=== PATIENT | male | born 1945 | race Caucasian/White ===

== ENCOUNTER 2018-11-24 22:12 | Emergency (ER) | payer MEDICARE, BC, SELFPAY ==
--- NOTE | 2018-11-24 22:19 | ED.GENADULT ---
HPI - General Adult General Chief complaint: Abdominal Pain Stated complaint: stomach cramps Time Seen by Provider: 11/24/18 22:14 Source: patient Mode of arrival: ambulatory Limitations: no limitations History of Present Illness HPI narrative: 72-year-old male here for evaluation of lower abdominal cramping and inability urinate since this morning. He states that also earlier today he had episodes of abdominal cramping causing diaphoresis and vomiting. He also feels like that he is constipated. The cramping and the diaphoresis and the vomiting have completely resolved. He states he has never had any problems with urinating in the past. No fevers. He thinks that he ate some bad food last evening which caused his symptoms today. Has not tried anything for symptoms prior to arrival Related Data Allergies Allergy/AdvReac Type Severity Reaction Status Date / Time No Known Drug Allergies Allergy Verified 11/24/18 22:25 Review of Systems Constitutional Constitutional: Reports chills, Denies fever(s) and Denies headache(s) ENT Ears, Nose, Mouth, and Throat: Denies headache(s) Cardiovascular Cardiovascular: Denies chest pain and Denies dyspnea Respiratory Respiratory: Denies dyspnea Gastrointestinal Gastrointestinal: Reports constipation, Reports cramping, Reports nausea and Reports vomiting Genitourinary Comments: No urine output since this more Musculoskeletal Musculoskeletal: Denies myalgias and Denies arthralgias Integumentary/Breasts Skin/Breast: Denies lesions and Denies rash Neurologic Neurologic: Denies headache(s) Hematologic/Lymphatic Hematologic/Lymphatic: Denies easy bleeding and Denies easy bruising [facility] Medical History Patient denies medical problems (Acute) Social History Smoking Status: Never smoker Social History Smoking Status: Never smoker Exam Initial Vital Signs Initial Vital Signs: Vital Signs Temperature 98.8 F 11/24/18 22:21 Pulse Rate 73 11/24/18 22:21 Respiratory Rate 16 11/24/18 22:21 Blood Pressure 167/90 H 11/24/18 22:21 Pulse Oximetry 97 11/24/18 22:21 Const General: cooperative, healthy appearing, comfortable, well developed and well groomed Orientation: alert and awake [facility] Head: normal to inspection and normocephalic Resp Effort & Inspection: normal respiratory effort Cardio Rate: regular rate GI Inspection: distended Palpation: soft and tender (Lower abdomen) Skin Lesions: no lesions Rashes: no rashes Neuro General: alert and awake Cognition: normal cognition Speech: speech normal Extrem General: normal to inspection and capillary refill normal Psych Appearance: grossly normal and well kempt Course Orders Ordered: ED Orders 11/24/18 22:30 Urinalysis and Microscopic Stat 11/24/18 22:40 Basic Metabolic Panel Stat Complete Blood Count AUTO DIFF Stat Vital Signs Vital signs: Vital Signs - 8 hr 11/24/18 22:21 11/24/18 23:17 11/24/18 23:59 Temperature 98.8 F Pulse Rate 73 66 72 Respiratory Rate 16 16 Blood Pressure 167/90 H 125/65 Blood Pressure [Right Arm] 131/60 Pulse Oximetry 97 97 98 Medical Decision Making Lab Data Lab results reviewed: Yes I reviewed the patient's lab results. Result diagrams: 11/24/18 22:40 11/24/18 22:40 Labs: Lab Results 11/24/18 11/24/18 11/24/18 Range/Units 22:30 22:40 22:40 WBC 11.5 H (4.5-11.0) X10^3/uL RBC 4.99 (4.5-5.9) X10^6/uL Hgb 15.9 (13.5-17.5) g/dL Hct 46.9 (41-53) % MCV 94.0 (80-100) fL MCH 31.8 (26-34) PG MCHC 33.8 (30-36) % RDW 14.3 (11.6-14.8) % Plt Count 172 (150-400) X10^3/uL Neut % (Auto) 82.8 H (50-75) % Lymph % (Auto) 7.6 L (25-40) % [place] % (Auto) 9.1 (3-14) % Eos % (Auto) 0.0 L (2-4) % Baso % (Auto) 0.5 (0-2) % Neut # (Auto) 9500 H (8853-0663) /uL Lymph # (Auto) 900 L (9870-9299) /uL [place] # (Auto) 1000 H (0-900) /uL Eos # (Auto) 0 (0-450) /uL Baso # (Auto) 100 (0-100) /uL Sodium 137 (137-145) mmol/L Potassium 4.2 (3.4-5.1) mmol/L Chloride 105 (98-107) mmol/L Carbon Dioxide 21 L (22-32) mmol/L BUN 35 H (9-20) mg/dL Creatinine 2.50 H (0.66-1.25) mg/dL Estimated GFR 25.4 L (>60) mL/min BUN/Creatinine Ratio 14.0 (6-22) Glucose 133 H (80-110) mg/dL Calcium 9.6 (8.4-10.2) mg/dL Urine Color Yellow Urine Appearance Slightly cloudy Urine pH 5.0 (4.5-8.0) Ur Specific [place] 1.010 (1.000-1.035) Urine Protein Negative (Negative) Urine Glucose (UA) Negative (Negative) g/dL Urine Ketones Negative (NEGATIVE) Urine Occult Blood 3+ H (Negative) Urine Nitrate Negative (Negative) Urine Bilirubin Negative (NEGATIVE) Urine Urobilinogen 0.2 (0.2) E.U./dL Ur Leukocyte Esterase Negative (NEGATIVE) Urine RBC 1-5/hpf (0-5/HPF) Urine WBC None seen (0-5/HPF) Urine Bacteria None seen (None) Ur Culture Indicated? Cult not indicated MDM Narrative Medical decision making narrative: Bladder scan showed 500 cc of urine in his bladder and the patient states that he could not urinate. Moreno catheter was placed with return of a total of 1300 cc of urine. He also has an increase in his creatinine which I suspect is from the outlet obstruction. No signs of a urinary tract infection. I had a discussion with the patient and his who is at bedside regarding his symptoms. Informed him that we could remove Moreno catheter however there is the potential that he would retain urine again. I advised him that we probably should leave the catheter in place however that would mean that he would go home with a catheter he needed to follow up with his primary doctor next week. After this discussion the patient opted to have the catheter removed. He was convinced that the urinary retention was caused by the nausea and vomiting the that he states was caused by the ?bad food ?that he ate the night before. I did inform him that this was unlikely the cause of his urinary retention. He understood the risks and benefits of leaving the catheter in and having it removed and he opted to have the catheter removed. Did inform him that he needed to contact his primary doctor on Monday for follow-up. I informed him that he did need to return to the emergency department if within the next 12-24 hours he did not urinate. He expressed understanding and agreement with plan. Discharge Plan Departure Patient Disposition: Home Clinical Impression: Acute urinary retention, Acute kidney injury Discharge Date/Time: 11/24/18 23:59 Instructions: DI for Urinary Retention in Men Activity Restrictions/Additional Instructions: After our discussion you opted to have the Moreno catheter removed. If over the next 12-24 hours you have a return of the inability to urinate please return to the emergency department. On Monday morning you do need to talk with your primary doctor about the urinary retention. It appears that the urinary retention has caused some injury to your kidneys however I expect that this will return to normal now that the bladder has been drained. Use to need to talk with your primary doctor regarding this as well.
[2018-11-24 22:21] VITALS: BP 167/90; PULSE 73; RESP 16; TEMP 37.1; O2SAT 97; BMI 25.4
[2018-11-24 22:43] LABS: Bacteria Urine None Seen; WBC Urine None Seen (0-5/HPF)
[2018-11-24 22:49] LABS: Bilirubin Urine UA NEGATIVE (NEGATIVE); Color Urine UA YELLOW; Glucose Urine UA NEGATIVE (Negative); Ketones Urine UA NEGATIVE (NEGATIVE); Leukocyte Esterase Urine UA NEGATIVE (NEGATIVE); Nitrite Urine UA NEGATIVE (Negative); Occult Blood Urine UA 3+ (Negative); Protein Urine UA NEGATIVE (Negative); Urobilinogen Urine UA 0.2 E.U./dL (0.2)
[2018-11-24 22:50] LABS: Appearance Urine UA Slightly Cloudy
[2018-11-24 22:52] LABS: Add Manual Diff / Slide Review NO; Basophils Absolute Auto 100 /uL (0-100); Basophils Percent Auto 0.5 % (0-2); Eosinophils Absolute Auto 0 /uL (0-450); Hematocrit 46.9 % (41-53); Hemoglobin 15.9 g/dL (13.5-17.5); Lymphocytes Absolute Auto 900 /uL (1100-4500); Lymphocytes Percent Auto 7.6 % (25-40); Mean Corpuscular HGB Conc 33.8 % (30-36); Mean Corpuscular Hemoglobin 31.8 PG (26-34); Monocytes Absolute Auto 1000 /uL (0-900); Monocytes Percent Auto 9.1 % (3-14); Neutrophils Absolute Auto 9500 /uL (1500-7000); Neutrophils Percent Auto 82.8 % (50-75); Platelet Count 172 X10^3/uL (150-400); Red Blood Cell Count 4.99 X10^6/uL (4.5-5.9); Red Cell Distribution Width 14.3 % (11.6-14.8); White Blood Cell Count 11.5 X10^3/uL (4.5-11.0)
[2018-11-24 22:59] LABS: Blood Urea Nitrogen 35 mg/dL (9-20); Calcium 9.6 mg/dL (8.4-10.2); Carbon Dioxide 21 mmol/L (22-32); Chloride 105 mmol/L (98-107); Estimated Glomerular Filt Rate 25.4 mL/min (>60); Glucose 133 mg/dL (80-110); HEMOLYSIS < 15 (0-50); Potassium 4.2 mmol/L (3.4-5.1); Sodium 137 mmol/L (137-145)
[2018-11-24 23:12] LABS: Culture Indicated Urine Cult Not Indicated; RBC Urine 1-5/HPF (0-5/HPF)
[2018-11-24 23:17] VITALS: BP 131/60; PULSE 66; O2SAT 97
[2018-11-24 23:59] VITALS: BP 125/65; PULSE 72; RESP 16; O2SAT 98
== END 2018-11-24 23:59 | disposition home or self-care (01) ==
PROVIDERS: Emergency Provider Emergency Medicine
DX: R33.9 Retention of urine, unspecified (principal); N17.9 Acute kidney failure, unspecified
CPT/HCPCS: 36591; 51701; 51798; 80048; 81001; 85025; 99283

== ENCOUNTER 2018-11-25 07:01 | Emergency (ER) | payer MEDICARE, BC, SELFPAY ==
[2018-11-25 07:08] VITALS: BP 163/67; PULSE 67; RESP 16; TEMP 36.6; O2SAT 95; BMI 25.4
--- NOTE | 2018-11-25 07:29 | ED.MALEGU ---
HPI - Male Genitourinary General Chief complaint: Urogenital-Male Stated complaint: Catheter issues Time Seen by Provider: 11/25/18 07:08 Source: patient, family () and old records reviewed Mode of arrival: ambulatory Limitations: no limitations History of Present Illness HPI Narrative: This is a 72-year-old male who returns with urinary tension. He was seen earlier this night had a catheter placed and had 1300 mL out immediately. Patient elected not to keep a Moreno catheter in place and returned this morning and again had retention. He has not had any fevers, no chest pain or shortness of breath. He did have abdominal pain earlier today and had some nausea and vomiting. He suspected that he had had food poisoning and thought that that was the cause of his urinary retention and that it had resolved that he would no longer have retention. Patient states he has not had any constipation. He had a normal soft bowel movement yesterday. He states that he has not had any issues but he has only had a small amount out today. He did notice a lot of pressure earlier. And he has occasionally had issues where he has had hesitancy with urination particularly when he has a strong laminated or tea. Patient does not take any other medications regularly. Related Data Previous Rx's Medication Instructions Recorded tamsulosin [Flomax] 0.4 mg PO DAILY #14 cap 11/25/18 Allergies Allergy/AdvReac Type Severity Reaction Status Date / Time No Known Drug Allergies Allergy Verified 11/24/18 22:25 Review of Systems Review of Systems ROS Unobtainable: All systems reviewed & are unremarkable except as noted in HPI and below Constitutional Constitutional: Denies chills and Denies fever(s) Gastrointestinal Gastrointestinal: Denies abdominal pain, Denies change in bowel habits, Denies diarrhea, Denies nausea and Denies vomiting Genitourinary Genitourinary: Reports as per HPI, Reports difficulty urinating, Denies dysuria, Denies urinary frequency, Reports urinary hesitancy, Denies urinary incontinence and Denies urinary urgency Musculoskeletal Musculoskeletal: Denies back pain [facility] Medical History Patient denies medical problems (Acute) Social History Smoking Status: Never smoker Social History Smoking Status: Never smoker Exam Narrative Exam Narrative: GENERAL: Alert and oriented x three, well-nourished, well-appearing male in mild distress. HEENT: Head normocephalic, atraumatic, EOMI, pupils reactive, face symmetric, moist mucous membranes NECK: Supple, full range of motion CARDIOVASCULAR: Regular rate and rhythm without murmurs, rubs or gallops. RESPIRATORY: Breath sounds equal bilaterally, no wheezes rales or rhonchi. ABDOMEN: Soft, nontender. Normoactive bowel sounds all 4 quadrants. No guarding or rebound, rigidity, no mass : No CVA tenderness EXTREMITIES: Normal range of motion, no clubbing or edema. Neurovascularly intact NEUROLOGICAL: Cranial nerves II through XII grossly intact. Moving all extremities SKIN: Warm, dry, no petechiae, no rashes or lesions. Initial Vital Signs Initial Vital Signs: Vital Signs Temperature 97.8 F 11/25/18 07:08 Pulse Rate 67 11/25/18 07:08 Respiratory Rate 16 11/25/18 07:08 Blood Pressure 163/67 H 11/25/18 07:08 Pulse Oximetry 95 11/25/18 07:08 Course Orders Ordered: Discontinued Medications Tamsulosin HCl (Flomax) 0.4 mg PO NOW ONE Stop: 11/25/18 08:06 Last Admin: 11/25/18 08:21 Dose: 0.4 mg Documented by: KEYONNA Vital Signs Vital signs: Vital Signs - 8 hr 11/25/18 07:08 Temperature 97.8 F Pulse Rate 67 Respiratory Rate 16 Blood Pressure 163/67 H Pulse Oximetry 95 MDM - Male Genitourinary MDM Narrative Medical decision making narrative: Moreno catheter was placed by nursing. Patient has 400cc in the bag. Patient did have 1 clot with catheter placement per nursing. Patient and family were given teaching. Patient did have a creatinine of 2.5 which is likely secondary to obstructive process. He had slightly elevated white count at 11, he had occult blood but no other changes such as nitrates or leukocyte esterase on urinalysis. We discussed that patient does need short-term follow-up with Urology, if they prefer they can start with their primary care and have referral. We would recommend that the catheter stay in place for about a week and that he take Flomax daily until cleared by Urology. We did discuss that patient's renal function is decreased and this needs to be followed. Discharge Plan Departure Patient Disposition: Home Clinical Impression: Acute urinary retention, Moreno catheter in place Discharge Date/Time: 11/25/18 08:55 Instructions: How to Care for Your Moreno Catheter -- Male Activity Restrictions/Additional Instructions: Follow up with urology in the next 5-7 days for recheck and removal of your catheter. Included is a local option for urology or through [facility]. Call Monday morning for an appointment. Take flomax once daily until seen by urology. Return to the emergency department for fevers greater than 100.4 F, if there is no urine draining from the catheter, if you are having no abdominal pain or flank pain, lightheadedness, passing out, persistent vomiting, large blood clots or other issues with urination. Prescriptions: New tamsulosin [Flomax] 0.4 mg capsule 0.4 mg PO DAILY Qty: 14 RF: 0 Referrals: Reanna Stubbs MD [Physician] - Armando Farnsworth MD [Non-Staff] -
--- NOTE | 2018-11-25 07:38 | PC.NURSE ---
Pt from [place]. Pt arrived after being DC from ED yesterday c/o urinary retention. was catheterized yesterday with 1300mL output without complication, was advised to leave cath in place but opted to have it removed prior to DC. pt without urination since DC. 20F borrego placed without complication. small clot noted to release upon insertion. 900mL drained clear yellow urine. Education provided on leg bag and how to clean borrego cath with warm soapy water in shower until seeing urology.
[2018-11-25] MEDS: TAMSULOSIN 0.4 MG CAPSULE PO (08:21)
[2018-11-25 08:52] VITALS: BP 150/70; PULSE 67; RESP 16; O2SAT 98
--- NOTE | 2018-11-25 08:53 | PC.NURSE ---
Pt given extensive education on use of borrego, cleaning, and irrigation if needed. pt ambulated out of ED with steady gait.
== END 2018-11-25 08:55 | disposition home or self-care (01) ==
PROVIDERS: Emergency Provider Emergency Medicine
DX: R33.9 Retention of urine, unspecified (principal); Z46.6 Encounter for fitting and adjustment of urinary device
CPT/HCPCS: 51701; 99283

== ENCOUNTER 2020-02-19 18:06 | Emergency (ER) | payer MEDICARE, BC, SELFPAY ==
[2020-02-19 18:11] VITALS: BP 151/81; PULSE 60; RESP 20; TEMP 37.1; O2SAT 98
--- NOTE | 2020-02-19 18:15 | DI.US.S_ITS ---
PROCEDURE: US PERIPH VENOUS LOW EXTREM LT INDICATIONS: LLE pain/swelling x1 week TECHNIQUE: Real-time imaging, as well as color and pulse Doppler interrogation, were performed of the lower extremity deep veins from the inguinal ligament to the popliteal fossa. COMPARISON: None. FINDINGS: The common femoral and femoral veins normally compressible, and free of intraluminal thrombus. Partially occlusive thrombus is noted in the left popliteal vein. Occlusive thrombus is noted in the greater saphenous vein. IMPRESSION: 1. Abnormal study demonstrating partially occlusive deep vein thrombosis involving the left popliteal vein. 2. Occlusive thrombus involving the left greater saphenous vein of the superficial venous system Dictated by: Estefany Wick MD, PhD on 02/19/2020 at 19:35 Approved by: Estefany Wick MD, PhD on 02/19/2020 at 19:36
--- NOTE | 2020-02-19 19:07 | ED_ITS ---
HPI - Extremity Problem General Chief complaint: Extremity Problem,Nontraumatic Stated complaint: left leg pain / Time Seen by Provider: 02/19/20 18:08 Source: patient Mode of arrival: Ambulatory Limitations: no limitations History of Present Illness HPI Narrative: 74M non smoker without significant medical history presents with his and the chief complaint of left leg pain and swelling and his doctor sent him for evaluation of a possible DVT. He's had no CP or SOB and denies other symptoms. He denies any history of blood clot. He has had no recent injury. Though he has been careful about a [id number] and quarantine he is quite active and denies any element of a sedentary lifestyle. He states he just started noticing the redness and pain few days ago. He states it is worse with motion and improves with rest. MD Complaint: extremity pain and extremity swelling Onset (ago): day(s) Pain Consistency: constant Location: left Quality: aching Radiation: none Relieving factors: rest Exacerbating factors: walking and palpation Associated symptoms: denies other symptoms Related Data Previous Rx's Medication Instructions Recorded tamsulosin [Flomax] 0.4 mg PO DAILY #14 cap 11/25/18 apixaban [Eliquis] 5 mg PO BID 30 Days #60 tab 02/19/20 Allergies Allergy/AdvReac Type Severity Reaction Status Date / Time No Known Drug Allergies Allergy Verified 11/24/18 22:25 Review of Systems Constitutional Constitutional: Denies chills, Denies fatigue, Denies fever(s), Denies frequent falls, Denies lethargy and Denies weakness Eyes Eyes: Denies change in vision, Denies eye discharge, Denies irritation and Denies loss of vision ENT Ears, Nose, Mouth, and Throat: Denies change in voice, Denies dizziness, Denies neck pain, Denies sore throat and Denies throat swelling Cardiovascular Cardiovascular: Denies chest pain, Denies irregular heart rhythm, Denies lightheadedness, Denies palpitations, Denies dyspnea, Denies dyspnea on exertion and Denies orthopnea Respiratory Respiratory: Denies cough, Denies dyspnea, Denies dyspnea on exertion and Denies wheezing Gastrointestinal Gastrointestinal: Denies abdominal pain, Denies change in bowel habits, Denies diarrhea, Denies nausea and Denies vomiting Musculoskeletal Musculoskeletal: Denies neck pain and Denies numbness Integumentary/Breasts Skin/Breast: Denies pruritus, Reports erythema, Denies rash, Reports skin swell ing and Denies wounds Neurologic Neurologic: Denies behavioral changes, Denies confusion, Denies dizziness, Denies frequent falls, Denies loss of vision, Denies numbness and Denies weakness Psychiatric Psychiatric: Denies anxiety, Denies behavioral changes, Denies confusion, Denies depression, Denies homicidal ideation and Denies suicidal ideation Endocrine Endocrine: Denies fatigue, Denies flushing and Denies palpitations Hematologic/Lymphatic Hematologic/Lymphatic: Denies easy bruising Allergic/Immunologic Allergic/Immunologic: Denies urticaria, Denies throat swelling and Denies wheezing Patient History Medical History Patient denies medical problems Social History (Reviewed 02/20/20 @ :28 by Yobany Pacheco DO) Smoking Status: Never smoker Smoking Status: Never smoker alcohol intake frequency: 0-2 drinks per day Substance Use Type: does not use Exam Narrative Exam Narrative: GEN: AOx3 and in mild distress EYES: Pupils are equal, round, and reactive to light and accommodation. Extraoccular muscles are intact bilaterally. There is no subconjunctival hemorrhage or exudate. CHEST: Lungs are clear to auscultation bilaterally and free of wheezes, rales, or rhonchi. Heart rate is regular rhythm, there are no murmurs, clicks, rubs, or gallops. There is no chest wall tenderness. ABD: Abdomen is soft and nontender. There is no guarding or rebound. Bowel sounds are normal in all 4 quadrants. There is no mass or organomegaly. EXT: Left lower extremity with mild erythema, warmth and circumferential swelling. There is tenderness to palpation of the left calf. There is a palpable, rope-like area of swelling, tenderness and erythema along medial left knee into the distal thigh consistent with superficial thrombophlebitis. Full painless ROM of all extremities with no loss of sensation or strength. SKIN: Warm, pink, and dry. No erythema or rash Initial Vital Signs Initial Vital Signs: Vital Signs Temperature 98.8 F 02/19/20 18:11 Pulse Rate 60 02/19/20 18:11 Respiratory Rate 20 02/19/20 18:11 Blood Pressure 151/81 H 02/19/20 18:11 Pulse Oximetry 98 02/19/20 18:11 Course Orders Ordered: ED Orders 02/19/20 18:15 US perip venous low extrem lt Stat Discontinued Medications Apixaban (Apixaban 5 Mg Tablet) 5 mg PO NOW ONE Stop: 02/19/20 20:02 Last Admin: 02/19/20 20:07 Dose: 5 mg Documented by: SEVEN Vital Signs Vital signs: Vital Signs - 8 hr 02/19/20 18:11 02/19/20 20:10 Temperature 98.8 F Pulse Rate 60 60 Respiratory Rate 20 18 Blood Pressure 151/81 H 160/82 H Pulse Oximetry 98 97 MDM - Extremity (Nontraumatic) Imaging Data US - DVT: Radiologist's Impression: Timbo Amador 74 M [address] [id number] ReportSigned Patient: Jeremias Amador#: [id number]: 4Acct:[id number]/Sex: 74 / MDate of Service: 02/19/20Loc: EDAccession Number: [id number] Procedure: perip venous low extrem lt Ordering Provider: Yobany Pacheco D.O. PROCEDURE: US PERIP VENOUS LOW EXTREM LT INDICATIONS: LLE pain/swelling x1 week TECHNIQUE: Real-time imaging, as well as color and pulse Doppler interrogation, were performed of the lower extremity deep veins from the inguinal ligament to the popliteal fossa. COMPARISON: None. FINDINGS: The common femoral and femoral veins normally compressible, and free of intraluminal thrombus. Partially occlusive thrombus is noted in the left popliteal vein. Occlusive thrombus is noted in the greater saphenous vein. IMPRESSION: 1. Abnormal study demonstrating partially occlusive deep vein thrombosis involving the left popliteal vein. 2. Occlusive thrombus involving the left greater saphenous vein of the superficial venous system Dictated by: Estefany Wick MD, PhD on 02/19/2020 at 19:35 Approved by: Estefany Wick MD, PhD on 02/19/2020 at 19:36 [facility] Narrative Medical decision making narrative: Extensive discussion at the bedside with patient and regarding options for anticoagulation. In the end we agree that DOAC is most appropriate and they are aware that this is a more expensive option, but very much don't want to use Lovenox or Coumadin. Discharge Plan Departure Patient Disposition: Home Clinical Impression: Deep vein thrombosis of lower extremity Qualifiers: Affected thrombotic vein of extremity: popliteal Chronicity: acute Laterality: left Qualified Code(s): I82.432 - Acute embolism and thrombosis of left popliteal vein Instructions: DI for Deep Vein Thrombosis Activity Restrictions/Additional Instructions: *You have been diagnosed with [ Left popliteal vein DVT ] *What to do: *Take medications as directed: *Follow up with your primary care provider in 2-3 days, call for an appointment. Let them know you were seen in the Emergency Department and that we ask that you be seen in follow up *Return to ER if you should have any new, worsening or concerning symptoms Prescriptions: New Eliquis 5 mg tablet 5 mg PO BID 30 Days Qty: 60 RF: 0 No Action tamsulosin [Flomax] 0.4 mg capsule 0.4 mg PO DAILY Qty: 14 RF: 0
[2020-02-19] MEDS: APIXABAN 5 MG TABLET PO (20:07)
[2020-02-19 20:10] VITALS: BP 160/82; PULSE 60; RESP 18; O2SAT 97
== END 2020-02-19 20:10 | disposition home or self-care (01) ==
PROVIDERS: Emergency Provider Emergency Medicine
DX: I82.432 Acute embolism and thrombosis of left popliteal vein (principal); Z79.01 Long term (current) use of anticoagulants; M79.605 Pain in left leg
CPT/HCPCS: 93971; 99283